=== PATIENT | male | born 1985 | race Caucasian/White ===

== ENCOUNTER 2021-06-11 01:15 | Emergency (ER) | payer OTHER ==
[2021-06-11 04:45] LABS: BASOPHIL 0.4 % (0-2); EOSINOPHIL 1.9 % (0-5); HCT 45.7 % (42.0-52.0); HGB 15.7 g/dl (13.2-18.0); MCH 31.9 pg (25.0-31.0); MCHC 34.4 g/dL (32.0-36.0); MCV 92.9 fL (78.0-100.0); MONOCYTE 8.1 % (0-12); NEUTROPHIL 56.9 % (41-80); NRBC 0; PLT 225 K/uL (150-400); RBC 4.92 M/uL (4.70-6.00); RDW 12.8 % (11.5-14.0); WBC 9.9 K/uL (4.0-10.5)
[2021-06-11 04:47] LABS: BILIRUBIN NEGATIVE (NEGATIVE); BLOOD NEGATIVE Ery/uL (NEGATIVE); CLARITY CLEAR (CLEAR); COLOR YELLOW (YELLOW); GLUCOSE (U) NORMAL (NORMAL); LEUKOCYTES NEGATIVE Leu/uL (NEGATIVE); NITRITE NEGATIVE (NEGATIVE); PROTEIN TRACE (LOW) mg/dL (NEGATIVE); SPECIFIC GRAVITY >=1.030 (1.001-1.030); UROBILINOGEN 0.2 mg/dL (0.2-1.0)
[2021-06-11 05:06] LABS: BUN/CREAT RATIO (CALC) 13.3 RATIO; CREATININE 0.98 mg/dL (0.67-1.17); POTASSIUM 3.9 mmol/L (3.5-5.1)
[2021-06-11] MEDS ORDERED: ETODOLAC500 MG PO (09:12)
[2021-06-11] MEDS ORDERED: PEPCID AC20 MG PO (09:13)
== END 2021-06-11 09:31 | disposition home or self-care (01) ==
LOC: FER 01:15
PROVIDERS: Emergency Medicine Emergency Medical Services
DX: K86.89 Other specified diseases of pancreas (principal); F17.210 Nicotine dependence, cigarettes, uncomplicated; Z88.0 Allergy status to penicillin; Z91.013 Allergy to seafood
CPT/HCPCS: 36415; 80048; 81003; 83690; 85025; J1170; J1885; J2405; J7030